=== PATIENT | female | born 1975 | race Caucasian/White ===

== ENCOUNTER → 2016-09-11 | Outpatient (CLI) | payer BC ==
[2014-08-17 09:45] VITALS: BP 108/76
--- NOTE | 2016-09-16 11:16 | KCIC ---
Final Report Bilateral digital screening mammograms: Reason for examination: Routine screening. Comparison is made to previous studies dated 08/29/2015 and 08/25/2014. The skin and nipples show no abnormalities. No abnormal axillary lymph nodes are seen. Bilateral breast implants remain in place. The breast parenchyma shows scattered fibroglandular density. (Breast density: Category B.) There are no dominant masses, suspicious calcifications or architectural distortions. Impression: No evidence of malignancy. Recommend routine screening. BI-RADS Category 1: Negative. "Our facility is accredited by the [employer]." This patient's information has been entered into a reminder system for the patient to be notified with the results of her examination and a target date for the next mammogram. Electronically signed by: Mony Villavicencio MD (09/11/2016 5:23 PM) [facility]
== END | disposition home or self-care (01) ==
LOC: KCIC MAMMO 14:50
PROVIDERS: ATTEND Obstetrics & Gynecology
DX: Z12.31 Encounter for screening mammogram for malignant neoplasm of breast (principal)
CPT/HCPCS: G0202; 77067

== ENCOUNTER → 2017-04-17 | Outpatient (CLI) | payer BC | END | disposition home or self-care (01) | LOC: KCIC US 07:45 | DX: E27.8 Other specified disorders of adrenal gland (principal) | CPT/HCPCS: 76700 ==

== ENCOUNTER → 2017-09-15 | Outpatient (CLI) | payer BC | END | disposition home or self-care (01) | LOC: KCIC MAMMO 11:50 | DX: Z12.31 Encounter for screening mammogram for malignant neoplasm of breast (principal) | CPT/HCPCS: 77067 ==

== ENCOUNTER → 2018-09-15 | Outpatient (CLI) | payer BC ==
[2014-08-17 09:45] VITALS: BP 108/76
--- NOTE | 2018-09-15 16:37 | KCIC ---
Bilateral digital screening mammograms: Reason for examination: Routine screening. Comparison is made to previous studies dated 09/15/2017 and 09/11/2016. Interpretation was made with the benefit of CAD. The skin and nipples show no abnormalities. No abnormal axillary lymph nodes are seen. Bilateral breast implants remain present. The breast parenchyma shows scattered fibroglandular density. (Breast density: Category B.) There are no dominant masses, suspicious calcifications or architectural distortions. Impression: No evidence of malignancy. Recommend routine screening. BI-RADS Category 1: Negative. "Our facility is accredited by the [employer]amm[employer]." This patient's information has been entered into a reminder system for the patient to be notified with the results of her examination and a target date for the next mammogram. Electronically signed by: Mony Villavicencio MD (09/15/2018 4:34 PM) [id number]
== END | disposition home or self-care (01) ==
LOC: KCIC MAMMO 12:09
PROVIDERS: ATTEND Family Medicine
DX: Z12.31 Encounter for screening mammogram for malignant neoplasm of breast (principal); Z98.82 Breast implant status
CPT/HCPCS: 77067

== ENCOUNTER → 2020-08-29 | Outpatient (CLI) | payer OTHER ==
[2014-08-17 09:45] VITALS: BP 108/76
--- NOTE | 2020-08-29 16:29 | KCIC ---
BILATERAL SCREENING MAMMOGRAM, 2-D and 3-D History: Routine screening. Comparison: Bilateral mammogram September 15, 2018 and 2017. Technique: MLO and CC digital tomosynthesis (3D) images obtained. Radiologist reviewed these images on dedicated workstation. Findings: Breast Tissue Density B : There are scattered areas of fibroglandular density. There are stable bilateral retropectoral breast implants. There are no dominant masses, suspicious microcalcifications or architectural distortion. IMPRESSION: No mammographic evidence of malignancy. Recommend routine screening. BI-RADS category 1: Negative. The images were reviewed with computer-aided detection. Patient information is entered into reminder system with a target [facility] date [facility]. Mammography is the most sensitive method for finding small breast cancers, but it does not detect the m all and is not a substitute for careful clinical examination. A negative mammogram does not negate a clinically suspicious finding and should not result in delay in biopsying a clinically suspicious a bnormality. "Our facility is accredited by the [employer]amm[employer]." Electronically signed by: Ibrahima You MD (08/29/2020 4:27 PM) [id number]
== END ==
LOC: KCIC MAMMO 08:22
PROVIDERS: ATTEND Obstetrics & Gynecology
DX: Z12.31 Encounter for screening mammogram for malignant neoplasm of breast (principal)
CPT/HCPCS: 77063; 77067